=== PATIENT | female | born 1990 | race American Indian/Alaskan Native ===

== ENCOUNTER 2017-09-22 04:49 | Observation (INO) | payer BC ==
[2017-09-22] MEDS ORDERED: ACETADOTE IV ONE ×5 (05:44→14:00)
[2017-09-22] MEDS ORDERED: NACL 0.9% IV ONE ×4 (06:00→14:00)
[2017-09-22 06:07] LABS: Basophils % (Auto) 0.2 % (0.0-1.8); Eosinophils % (Auto) 0.6 % (0.0-4.3); Hematocrit 36.6 % (30.3-42.9); Hemoglobin 12.1 gm/dl (10.1-14.3); Lymphocytes # (Auto) 1.1 K/mm3 (1.2-5.4); Lymphocytes % (Auto) 14.8 % (13.4-35.0); Mean Corpuscular HGB Conc 33 % (30-34); Mean Corpuscular Volume 78 fl (79-97); Monocytes # (Auto) 0.4 K/mm3 (0.0-0.8); Monocytes % (Auto) 4.5 % (0.0-7.3); Platelet Count 349 K/mm3 (140-440)
[2017-09-22 06:09] LABS: Mean Corpuscular Hemoglobin 26 pg (28-32)
[2017-09-22 06:18] LABS: INR 0.9 (0.87-1.13)
[2017-09-22 06:59] LABS: Alanine Aminotransferase 8 units/L (7-56); Albumin 3.7 g/dL (3.9-5); BUN/Creatinine Ratio 11; Blood Urea Nitrogen 8 mg/dL (7-17); Calcium 8.8 mg/dL (8.4-10.2); Hemolysis Index 3
--- NOTE | 2017-09-22 07:16 | Emergency Department Report ---
ED General Adult HPI - General Chief complaint: Overdose Stated complaint: TYENOL OVER DOSE Time Seen by Provider: 09/22/17 07:01 Source: patient Mode of arrival: Ambulatory Limitations: No Limitations - History of Present Illness Initial comments: Patient states her menstrual cramps took 16 650 mg Tylenol course 24 hours she was given acetylcysteine on arrival 5 AM she is here for evaluation of taking too much Tylenol. She does deny SI or HI initial dose of Tylenol coronary the patient was yesterday at 5 AM she continued taking it over the course of the day. She ended up coming to the ED because she started to the medicine was making her nauseated. She has been having a little bit of nausea and vomiting. poison control was apparently notified on patient's arrival by the nurses prior to my arrival. Given her symptoms and the amount of continuous Tylenol ingestion they were unable to determine time of onset or toxic dose. At that point on poison center did recommend a full course of acetylcysteine. Patient did receive initial acetylcysteine prior to my arrival, she is here stating int. nausea, intial lft's unremarkable -: Gradual, hour(s) Associated Symptoms: loss of appetite, nausea/vomiting. denies: confusion, chest pain, cough, diaphoresis, fever/chills, headaches, shortness of breath, syncope, weakness - Related Data Allergies Allergy/AdvReac Type Severity Reaction Status Date / Time No Known Allergies Allergy Unverified 09/22/17 04:57 ED Review of Systems ROS: Stated complaint: TYENOL OVER DOSE Other details as noted in HPI Comment: All other systems reviewed and negative Constitutional: denies: diaphoresis, fever, malaise Eyes: denies: eye discharge, vision change ENT: denies: dental pain, hearing loss, epistaxis Respiratory: denies: shortness of breath, SOB with exertion, SOB at rest, stridor Cardiovascular: denies: chest pain, palpitations, dyspnea on exertion, orthopnea , edema, syncope, paroxysmal nocturnal dyspnea Genitourinary: denies: frequency, hematuria, discharge Musculoskeletal: denies: joint swelling, arthralgia Skin: denies: change in color, change in hair/nails, pruritus Neurological: denies: numbness, paresthesias, confusion, abnormal gait, vertigo Psychiatric: denies: depression, auditory hallucinations, visual hallucinations , homicidal thoughts, suicidal thoughts ED Past Medical Hx - Past Medical History Previous Medical History?: No - Surgical History Past Surgical History?: No - Social History Smoking Status: Current Some Day Smoker Substance Use Type: None ED Physical Exam - General Limitations: No Limitations General appearance: alert, anxious - Head Head exam: Present: atraumatic, normocephalic - Eye Eye exam: Present: PERRL, EOMI - ENT ENT exam: Present: normal exam, normal orophraynx - Neck Neck exam: Present: normal inspection. Absent: tenderness, meningismus - Respiratory Respiratory exam: Present: normal lung sounds bilaterally. Absent: respiratory distress, wheezes, rales, rhonchi, stridor, chest wall tenderness, accessory muscle use, decreased breath sounds, prolonged expiratory - Cardiovascular Cardiovascular Exam: Present: regular rate, normal rhythm - GI/Abdominal GI/Abdominal exam: Present: soft. Absent: distended, tenderness, guarding, rebound, mass - Extremities Exam Extremities exam: Present: normal inspection, normal capillary refill. Absent: pedal edema, joint swelling, calf tenderness - Neurological Exam Neurological exam: Present: alert, oriented X3, CN II-XII intact. Absent: motor sensory deficit - Skin Skin exam: Absent: cyanosis, diaphoretic, erythema, urticaria, vesicles, petechiae, pallor, abrasion, ecchymosis ED Course Vital Signs 09/22/17 09/22/17 09/22/17 04:51 05:56 06:00 Temperature 97.6 F Pulse Rate 68 59 L 58 L Respiratory 18 17 13 Rate Blood Pressure 109/65 118/71 Blood Pressure [Left] O2 Sat by Pulse 98 Oximetry 09/22/17 09/22/17 09/22/17 06:15 07:00 07:15 Temperature 98.1 F 98.6 F Pulse Rate 58 L 72 72 Respiratory 14 20 20 Rate Blood Pressure 125/77 Blood Pressure 120/67 125/77 [Left] O2 Sat by Pulse 98 100 100 Oximetry ED Medical Decision Making - Lab Data Result diagrams: 09/22/17 05:44 09/22/17 05:44 - Medical Decision Making Case was discussed with Dr. jb BHATIA of hospital service who will admit for further evaluation of Tylenol overdose. Patient was consult for mental health given the unknown nature of the ingestion although it does sound like it may have just been a innocent. She is not denying SH at this time. Overall mental health will also be consult. She'll need admission for [facility] Critical care attestation.: If time is entered above; I have spent that time in minutes in the direct care of this critically ill patient, excluding procedure time. ED Disposition Clinical Impression: Acetaminophen overdose Disposition: OP ADMIT IP TO THIS HOSP Is pt being admited?: Yes Condition: Stable Referrals: PRIMARY CARE, [Primary Care Provider] - 3-5 Days Time of Disposition: 10:18
[2017-09-22 07:17] LABS: Bilirubin,Direct < 0.2 mg/dL (0-0.2)
[2017-09-22] MEDS ORDERED: ZOFRAN IV ONE (07:19)
[2017-09-22 08:53] LABS: Bilirubin,Urine NEG (Negative); Blood,Urine SM (Negative); Color,Urine Yellow (Yellow); Mucus,Urine FEW /HPF; Urobilinogen,Urine < 2.0 mg/dL (<2.0)
[2017-09-22 09:17] LABS: HCG Qualitative,Urine Negative (Negative)
[2017-09-22 09:50] LABS: Amphetamine Screen,Urine PRESUMPTIVE NEGATIVE; Benzodiazepines Screen,Urine PRESUMPTIVE NEGATIVE; Cannabinoid Screen,Urine PRESUMPTIVE NEGATIVE; Cocaine Screen,Urine PRESUMPTIVE NEGATIVE; Methadone Screen,Urine PRESUMPTIVE NEGATIVE; Opiate Screen,Urine PRESUMPTIVE NEGATIVE
--- NOTE | 2017-09-22 12:11 | History and Physical Report ---
History of Present Illness Date of examination: 09/22/17 Date of admission: 09/22/17 10:07 Chief complaint: Tylenol overdose History of present illness: 27-year-old -[place] female presented to the emergency department after taking 16, 650 mgs of Tylenol. Patient had mild abdominal cramp, nausea and vomiting. Patient denied any yellowish discoloration of coma loss of consciousness or any other complaints. Patient took the Tylenol for menstrual cramp, she usally take 4 Tylenols. Patient states she has a side effect of Tylenols. Poison control was consulted and ordered an N-acetylcystine and advised to admit and observe her for 1 more day REVIEW OF SYSTEMS: GENERAL: no weight change, no fatigue, no fever HEAD: no head ache EYES: no blurry vision, no acute visual loss EARS: no hearing loss, no discharge, no earache NOSE: no stuffiness, no sneezing, no discharge MOUTH, THROAT AND NECK: no bleeding gums, no sore throat, no swollen neck CARDIAC: no palpitations, no dyspnea on exertion, no orthopnea, no PND, no edema , no chest pain RESPIRATORY: no shortness of breath, no wheeze, no cough, no sputum, no hemoptysis, no asthma GI: no decreased appetite, no nausea, no vomiting, no dysphagia, no diarrhea, no constipation, no abdominal pain URINARY: no change in frequency, no urgency, no polyuria, no hematuria, no incontinence MUSCULOSKELETAL: no muscle weakness, no pain, no joint stiffness NEUROLOGIC: no loss of sensation/numbness, no tingling, no tremors, no weakness/ paralysis HEMATOLOGIC: no anemia, no easy bruising SKIN: no rashes ENDOCRINE: no heat/cold intolerance, no polyuria, no polydipsia, no thyroid problems, no diabetes PSYCHIATRIC: no anxiety, no depression, no suicidal ideations Past History Past Medical History: No medical history Past Surgical History: No surgical history Social history: full code. denies: smoking, alcohol abuse, prescription drug abuse Family history: no significant family history Medications and Allergies Allergies Allergy/AdvReac Type Severity Reaction Status Date / Time No Known Allergies Allergy Unverified 09/22/17 04:57 Home Medications Medication Instructions Recorded Confirmed Last Taken Type Omeprazole Magnesium [Prilosec Otc] 20 mg PO DAILY 09/22/17 09/22/17 Unknown History Active Meds: Active Medications Acetylcysteine 5,000 mg/ (Sodium Chloride) 525 mls @ 131.25 mls/hr IV ONCE ONE Stop: 09/22/17 13:59 Last Admin: 09/22/17 10:00 Dose: 131.25 mls/hr Acetylcysteine 10,000 mg/ (Sodium Chloride) 1,050 mls @ 65.625 mls/hr IV ONCE ONE Stop: 09/23/17 03:29 Last Admin: 09/22/17 11:58 Dose: 65.625 mls/hr Exam - Physical Exam Narrative exam: Not in cardiopulmonary distress. The patient is obese. Vital signs as documented. Head exam is unremarkable. No scleral icterus . Neck is without jugular venous distension, thyromegaly, or carotid bruits. Lungs are clear to auscultation. Cardiac exam reveals regular rate and Rhythm. First and second heart sounds normal. No murmurs, rubs or gallops. Abdominal exam reveals normal bowel sounds, no masses, no organomegaly and no aortic enlargement. Extremities are nonedematous and both femoral and pedal pulses are normal. PHYSICS TUTOR: Alert and oriented 3. No focal weakness. - Constitutional Vitals: Temp Pulse Resp BP Pulse Ox 98.6 F 72 20 125/77 100 09/22/17 07:15 09/22/17 07:15 09/22/17 07:15 09/22/17 07:15 09/22/17 07:15 Results - Labs CBC & Chem 7: 09/22/17 05:44 09/22/17 05:44 Labs: Laboratory Last Values WBC 7.7 K/mm3 (4.5-11.0) 09/22/17 05:44 RBC 4.70 M/mm3 (3.65-5.03) 09/22/17 05:44 Hgb 12.1 gm/dl (10.1-14.3) 09/22/17 05:44 Hct 36.6 % (30.3-42.9) 09/22/17 05:44 MCV 78 fl (79-97) L 09/22/17 05:44 MCH 26 pg (28-32) L 09/22/17 05:44 MCHC 33 % (30-34) 09/22/17 05:44 RDW 15.0 % (13.2-15.2) 09/22/17 05:44 Plt Count 349 K/mm3 (140-440) 09/22/17 05:44 Lymph % (Auto) 14.8 % (13.4-35.0) 09/22/17 05:44 [place] % (Auto) 4.5 % (0.0-7.3) 09/22/17 05:44 Eos % (Auto) 0.6 % (0.0-4.3) 09/22/17 05:44 Baso % (Auto) 0.2 % (0.0-1.8) 09/22/17 05:44 Lymph # 1.1 K/mm3 (1.2-5.4) L 09/22/17 05:44 [place] # 0.4 K/mm3 (0.0-0.8) 09/22/17 05:44 Eos # 0.0 K/mm3 (0.0-0.4) 09/22/17 05:44 Baso # 0.0 K/mm3 (0.0-0.1) 09/22/17 05:44 Seg Neutrophils % 79.9 % (40.0-70.0) H 09/22/17 05:44 Seg Neutrophils # 6.2 K/mm3 (1.8-7.7) 09/22/17 05:44 PT 12.6 Sec. (12.2-14.9) 09/22/17 05:44 INR 0.90 (0.87-1.13) 09/22/17 05:44 Sodium 137 mmol/L (137-145) 09/22/17 05:44 Potassium 3.7 mmol/L (3.6-5.0) 09/22/17 05:44 Chloride 103.0 mmol/L (98-107) 09/22/17 05:44 Carbon Dioxide 27 mmol/L (22-30) 09/22/17 05:44 Anion Gap 11 mmol/L 09/22/17 05:44 BUN 8 mg/dL (7-17) 09/22/17 05:44 Creatinine 0.7 mg/dL (0.7-1.2) 09/22/17 05:44 Estimated GFR > 60 ml/min 09/22/17 05:44 BUN/Creatinine Ratio 11 % 09/22/17 05:44 Glucose 95 mg/dL (65-100) 09/22/17 05:44 Calcium 8.8 mg/dL (8.4-10.2) 09/22/17 05:44 Total Bilirubin 0.20 mg/dL (0.1-1.2) 09/22/17 05:44 Direct Bilirubin < 0.2 mg/dL (0-0.2) 09/22/17 05:44 Indirect Bilirubin 0.0 mg/dL 09/22/17 05:44 AST 11 units/L (5-40) 09/22/17 05:44 ALT 8 units/L (7-56) 09/22/17 05:44 Alkaline Phosphatase 92 units/L (35-129) 09/22/17 05:44 Total Protein 7.0 g/dL (6.3-8.2) 09/22/17 05:44 Albumin 3.7 g/dL (3.9-5) L 09/22/17 05:44 Albumin/Globulin Ratio 1.1 % 09/22/17 05:44 Urine Color Yellow (Yellow) 09/22/17 07:03 Urine Turbidity Clear (Clear) 09/22/17 07:03 Urine pH 6.0 (5.0-7.0) 09/22/17 07:03 Ur Specific [place] 1.042 (1.003-1.030) H 09/22/17 07:03 Urine Protein 100 mg/dl mg/dL (Negative) 09/22/17 07:03 Urine Glucose (UA) Neg mg/dL (Negative) 09/22/17 07:03 Urine Ketones 20 mg/dL (Negative) 09/22/17 07:03 Urine Blood Sm (Negative) 09/22/17 07:03 Urine Nitrite Neg (Negative) 09/22/17 07:03 Urine Bilirubin Neg (Negative) 09/22/17 07:03 Urine Urobilinogen < 2.0 mg/dL (<2.0) 09/22/17 07:03 Ur Leukocyte Esterase Neg (Negative) 09/22/17 07:03 Urine WBC (Auto) 6.0 /HPF (0.0-6.0) 09/22/17 07:03 Urine RBC (Auto) 24.0 /HPF (0.0-6.0) 09/22/17 07:03 U Epithel Cells (Auto) 2.0 /HPF (0-13.0) 09/22/17 07:03 Urine Mucus Few /HPF 09/22/17 07:03 Urine HCG, Qual Negative (Negative) 09/22/17 07:03 Salicylates < 0.3 mg/dL (2.8-20.0) L 09/22/17 05:44 Urine Opiates Screen Presumptive negative 09/22/17 07:03 Urine Methadone Screen Presumptive negative 09/22/17 07:03 Acetaminophen < 5.0 ug/mL (10.0-30.0) L 09/22/17 07:11 Ur Barbiturates Screen Presumptive negative 09/22/17 07:03 Ur Phencyclidine Scrn Presumptive negative 09/22/17 07:03 Ur Amphetamines Screen Presumptive negative 09/22/17 07:03 U Benzodiazepines Scrn Presumptive negative 09/22/17 07:03 Urine Cocaine Screen Presumptive negative 09/22/17 07:03 U Marijuana (THC) Screen Presumptive negative 09/22/17 07:03 Drugs of Abuse Note Disclamer 09/22/17 07:03 Plasma/Serum Alcohol < 0.01 % (0-0.07) 09/22/17 05:44 Assessment and Plan Assessment and plan: 27-year-old -[place] female presented to the emergency department after she took 16 Tylenols Patient has mild abdominal pain, nausea, vomiting Currently ordered the symptoms resolved Labs including tylenol level are Unremarkable Poison control was consulted and recommended to give her N-acetylcysteine, and observe for 1 more day. Obesity: Patient is counseled about weight loss, diet, exercise. DVT prophylaxis: Lovenox. Disposition: Admit to medical floor. Advance Directives: Yes VTE prophylaxis?: Chemical Plan of care discussed with patient/family: Yes
[2017-09-22] MEDS ORDERED: ZOFRAN IV PRN (12:20)
[2017-09-22] MEDS ORDERED: LOVENOX SUB-Q SCH (22:00)
[2017-09-23] MEDS ORDERED: PROTONIX PO SCH (00:56)
[2017-09-23 06:01] LABS: Alanine Aminotransferase 9 units/L (7-56); Albumin 3.1 g/dL (3.9-5); BUN/Creatinine Ratio 12; Blood Urea Nitrogen 7 mg/dL (7-17); Calcium 8.1 mg/dL (8.4-10.2); Hemolysis Index 26
[2017-09-23 06:36] LABS: INR 1.01 (0.87-1.13)
[2017-09-23 08:28] VITALS: BP 119/67
--- NOTE | 2017-09-23 08:30 | Discharge Summary ---
Providers - Providers Date of Admission: 09/22/17 10:07 Attending physician: PETER DAVALOS MD 09/22/17 07:16 Consult to Mental Health [[facility]] Stat Reason For Exam: tylenol od Place consult to:: Notified:: yes Primary care physician: MANAGER PROCESS IMPROVEMENT Hospitalization Reason for admission: Acetaminophen overdose Condition: Stable Hospital course: 27-year-old -[place] female presented to the emergency department after taking 16, 650 mgs of Tylenol. Patient had mild abdominal cramp, nausea and vomiting. Patient denied any yellowish discoloration of coma loss of consciousness or any other complaints. Patient took the Tylenol for menstrual cramp, she usally take 4 Tylenols. Patient states she has a side effect of Tylenols. Poison control was consulted and ordered an N-acetylcystine and advised to admit and observe her for 1 more day. patient was admitted to the floor, patient finished N-acetylcysteine. Patient's liver function test and INR was within normal limits, patient didn't have any nausea, vomiting. Patient was hemodynamically stable. Patient was morbidly obese and counselled about weight loss, exercise and diet. Disposition: - TO HOME OR SELFCARE Time spent for discharge: 31 minutes - Discharge Diagnoses (1) Morbid obesity with BMI of 40.0-44.9, adult Status: Chronic (2) Acetaminophen overdose Status: Acute Core Measure Documentation - Palliative Care Palliative Care/ Comfort Measures: Not Applicable - Core Measures Any of the following diagnoses?: none Exam - Physical Exam Narrative exam: Not in cardiopulmonary distress. The patient is obese. Vital signs as documented. Head exam is unremarkable. No scleral icterus . Neck is without jugular venous distension, thyromegaly, or carotid bruits. Lungs are clear to auscultation. Cardiac exam reveals regular rate and Rhythm. First and second heart sounds normal. No murmurs, rubs or gallops. Abdominal exam reveals normal bowel sounds, no masses, no organomegaly and no aortic enlargement. Extremities are nonedematous and both femoral and pedal pulses are normal. 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 No focal weakness. - Constitutional Vitals: Temp Pulse Resp BP Pulse Ox 98.6 F 80 18 116/57 97 09/22/17 22:52 09/22/17 22:52 09/23/17 00:00 09/22/17 22:52 09/22/17 22:52 Plan Activity: no restrictions Weight Bearing Status: Full Weight Bearing Diet: low fat Follow up with: PRIMARY CAREMD [Primary Care Provider] - 7 Days Forms: Release Restrictions
== END 2017-09-23 12:00 | disposition home or self-care (01) ==
LOC: ED 04:49 → INTOOBSV 10:07 → 3A 10:07
PROVIDERS: ADMIT Internal Medicine; ATTEND Internal Medicine
DX: T39.1X1A Poisoning by 4-Aminophenol derivatives, accidental (unintentional), initial encounter (principal); E66.9 Obesity, unspecified; Z68.41 Body mass index [BMI] 40.0-44.9, adult; Y92.89 Other specified places as the place of occurrence of the external cause
CPT/HCPCS: 36415; 80048; 80053; 80074; 80307; 81001; 81025; 85025; 85610; 96365; 96366; 96372; 96375; 99285; G0378; G0480; J0132; J1650; J2405; J7030; J7040; J7050; 80320

== ENCOUNTER 2018-01-14 16:02 | Emergency (ER) | payer BC ==
[2018-01-14] MEDS ORDERED: TYLENOL PO ONE (16:58)
[2018-01-14] MEDS ORDERED: TYLENOL ONE (17:02)
[2018-01-14] MEDS ORDERED: ZOFRAN IV ONE (21:38)
[2018-01-14] MEDS ORDERED: NACL 0.9% 1000 ML 2,000 ML IV ONE (21:38)
--- NOTE | 2018-01-14 21:42 | Emergency Department Report ---
<JAMES BUSH - Last Filed: 01/14/18 23:12> ED Fever HPI - General Chief Complaint: Fever Stated Complaint: FEVER OF 102 3 DAYS/PAIN Time Seen by Provider: 01/14/18 21:37 - History of Present Illness Initial Comments: 27-year-old -[place] female presents to the emergency room for fever 3 days headache neck pain body pain and decreased appetite for the last 3 days. The patient does admit to nausea and vomited 1 this morning. She also admits to ear pain starting. She denies any sore throat sneezing coughing or chest pain. She does admit to a little short of breath. Patient has no past medical history currently takes no medications on a daily basis and has no known drug allergies. Patient reports she's been taking Tylenol which is helped with the fever but it returns. She has had no recent travels. Timing/Duration: constant Fever Severity/Quality: greater than 102 F Fever Therapy QUARRYMAN: Tylenol Associated Symptoms: headache, muscle aches, nausea/vomiting, stiff neck. denies: chest pain, cough ED Review of Systems ROS: Stated complaint: FEVER OF 102 3 DAYS/PAIN Other details as noted in HPI Constitutional: fever, weakness ENT: ear pain Respiratory: shortness of breath. denies: cough, wheezing Cardiovascular: denies: chest pain, palpitations Gastrointestinal: nausea, vomiting (x1). denies: abdominal pain, diarrhea Genitourinary: denies: urgency, dysuria, discharge Musculoskeletal: denies: back pain, joint swelling, arthralgia Neurological: headache, weakness Psychiatric: denies: anxiety, depression Hematological/Lymphatic: denies: easy bleeding, easy bruising ED Past Medical Hx - Past Medical History Previous Medical History?: No Hx Heart Attack/AMI: No - Surgical History Past Surgical History?: No - Social History Smoking Status: Never Smoker Substance Use Type: Alcohol - Medications Home Medications: Home Medications Medication Instructions Recorded Confirmed Last Taken Type Omeprazole Magnesium [Prilosec Otc] 20 mg PO DAILY 09/22/17 09/22/17 Unknown History ED Physical Exam - General Limitations: No Limitations General appearance: alert, in no apparent distress - Head Head exam: Present: atraumatic, normocephalic - Eye Eye exam: Present: EOMI - ENT ENT exam: Present: mucous membranes moist - Neck Neck exam: Present: normal inspection - Respiratory Respiratory exam: Present: normal lung sounds bilaterally. Absent: respiratory distress - Cardiovascular Cardiovascular Exam: Present: tachycardia - GI/Abdominal GI/Abdominal exam: Present: soft, normal bowel sounds. Absent: distended, tenderness - Extremities Exam Extremities exam: Present: normal inspection, full ROM - Back Exam Back exam: Present: normal inspection, full ROM - Neurological Exam Neurological exam: Present: alert, oriented X3, normal gait - Expanded Neurological Exam Expanded Patient oriented to: Present: person, place, time Cranial nerves: EOM's Intact: Normal, Gag Reflex: Normal, Tongue Deviation: Normal, Nystagmus: Normal, Facial Palsy with Forehead Movement: Normal, Facial Palsy without Forehead Movement: Normal Cerebellar function: Finger to Nose: Normal, Heel to Earl: Normal, Romberg: Normal Sensory exam: Upper Extremity Light Touch: Normal, Upper Extremity Pin Prick: Normal, Upper Extremity Temperature: Normal, UE 2 Point Discrimination: Normal, Lower Extremity Light Touch: Normal, Lower Extremity Pin Prick: Normal Motor strength exam: RUE: 5, LUE: 5, RLE: 5, LLE: 5 Best Eye Response (Kirstin): (4) open spontaneously Best Motor Response (Kirstin): (6) obeys commands Best Verbal Response (Kirstin): (5) oriented Kirstin Total: 15 - Psychiatric Psychiatric exam: Present: normal affect, normal mood - Skin Skin exam: Present: warm, dry, intact, normal color. Absent: rash ED Course Vital Signs 01/14/18 01/14/18 01/14/18 16:53 17:01 22:00 Temperature 102.7 F H 100.3 F H Pulse Rate 97 H 89 Respiratory 20 16 20 Rate Blood Pressure 132/62 Blood Pressure 115/78 [Right] O2 Sat by Pulse 96 100 Oximetry 01/15/18 01/15/18 01/15/18 01:05 01:30 01:54 Temperature 100.7 F H Pulse Rate 88 Respiratory 20 20 20 Rate Blood Pressure Blood Pressure 143/78 [Right] O2 Sat by Pulse 98 Oximetry 01/15/18 01/15/18 02:06 03:33 Temperature 98.8 F Pulse Rate 82 Respiratory 20 20 Rate Blood Pressure Blood Pressure 138/80 [Right] O2 Sat by Pulse 99 Oximetry ED Medical Decision Making - Lab Data Result diagrams: 01/14/18 21:44 01/14/18 21:44 - Medical Decision Making Patient has been evaluated by this provider in fast track. Patient's given Tylenol for fever and pain management in triage. This provider ordered CBC CMP and urinalysis IV fluids 2 L Zofran 4 mg IV. Patient lactic acid came back at 2.10 Discussed with he came over to evaluate patient as well he feels patient needs to be transferred over to the main ER. This provided contacted the charge nurse informed that we need a bed.. Critical care attestation.: If time is entered above; I have spent that time in minutes in the direct care of this critically ill patient, excluding procedure time. ED Disposition Condition: Stable Instructions: Acute Headache (ED), Fever in Adults (ED), Otitis Media (ED) Referrals: PRIMARY CARE, [Primary Care Provider] - 3-5 Days <BAM RAE - Last Filed: 01/15/18 03:41> ED Course - Reevaluation(s) Reevaluation #1: 01/15/18 01:52 I reexamined the patient has the patient was admitted to our main ED for further evaluation. Patient stated that she is feeling better. Admission had a red tympanic membrane on the right side with obvious otitis media. Neck exam was no clinical evidence of meningism. Patient does not look toxic. Heart and lung exam are normal. Abdomen is soft and nontender. Reevaluation #2: 01/15/18 03:37 Patient stated that she is feeling much better. Patient her food in no acute distress. no nausea or vomiting. Fevers subside. ED Medical Decision Making - Lab Data Result diagrams: 01/14/18 21:44 01/14/18 21:44 - Radiology Data Referring Physician: BAM RAE Patient Name: CHAPARRO ELLSWORTH Date of : 1990 Sex: Female Report Date: 2018-01-15 Report Status: Finalized Findings [facility] [address] [place] [address] Cat Scan Report Signed Patient: CHAPARRO ELLSWORTH MR#: [id number] : 1990 Acct:[id number] Age/Sex: 27 / F ADM Date: 01/14/18 Loc: ED Attending Dr: Ordering Physician: BAM RAE Date of Service: 01/15/18 Procedure(s): CT head/brain wo con Accession Number(s): [id number] cc: BAM RAE FINAL REPORT EXAM: CT HEAD/BRAIN WO CON HISTORY: headache fever COMPARISON: None available. TECHNIQUE: Axial images obtained skull base through vertex. FINDINGS: No acute intracranial hemorrhage, midline shift or pathologic extra axial fluid collection. Ventricles and cisterns are normal in size and configuration for the patient's age. Oden-white differentiation preserved. Calvarium grossly intact. Visualized ocular globes are grossly unremarkable. Visualized para-nasal sinuses and mastoid air cells are clear. IMPRESSION: No grossly acute intracranial abnormality. Transcribed By: LMA Dictated By: JOSE LUIS MORALES MD Electronically Authenticated By: JOSE LUIS MORALES MD Signed Date/Time: 01/15/18240 DD/ 0 TD/TT: 01/15/18240 - Medical Decision Making Patient improved significantly with IV fluids, pain medication and IV antibiotic. She stated that she is feeling much better. Patient is nontoxic. There is no clinical or laboratory evidence of meningitis. I advised patient to increase her by mouth intake, alternate Tylenol and Motrin for fever and follow-up with her primary care physician in the next 2-3 days. I also advised her to return to the ER if her symptoms are not improving. I will treat patient with Augmentin twice a day for 10 days for how right otitis media.
[2018-01-14 22:01] LABS: Basophils % (Auto) 0.3 % (0.0-1.8); Eosinophils % (Auto) 0.1 % (0.0-4.3); Hematocrit 38.4 % (30.3-42.9); Hemoglobin 12.4 gm/dl (10.1-14.3); Lymphocytes % (Auto) 19.2 % (13.4-35.0); Mean Corpuscular HGB Conc 32 % (30-34); Mean Corpuscular Volume 78 fl (79-97); Monocytes # (Auto) 1.1 K/mm3 (0.0-0.8); Monocytes % (Auto) 10.7 % (0.0-7.3); Platelet Count 299 K/mm3 (140-440); Red Blood Count 4.93 M/mm3 (3.65-5.03); Red Cell Distribution Width 15.9 % (13.2-15.2)
[2018-01-14 22:07] LABS: Bacteria,Urine 1+ /HPF (Negative); Bilirubin,Urine NEG (Negative); Blood,Urine SM (Negative); Color,Urine Amber (Yellow); Mucus,Urine 3+ /HPF
[2018-01-14 22:14] LABS: Mean Corpuscular Hemoglobin 25 pg (28-32)
[2018-01-14 22:14] LABS: Protein,Urine >500 mg/dL (Negative)
[2018-01-14 22:24] LABS: Alanine Aminotransferase 10 units/L (7-56); BUN/Creatinine Ratio 8; Blood Urea Nitrogen 7 mg/dL (7-17); Calcium 8.9 mg/dL (8.4-10.2); Hemolysis Index 0
[2018-01-14] MEDS ORDERED: ROCEPHIN/NS 1 GM/50 ML 1 GM/50 ML BAG IV ONE (23:10)
[2018-01-14] MEDS ORDERED: NACL 0.9% 1000 ML 1,000 ML IV ONE (23:44)
--- NOTE | 2018-01-14 23:52 | XRay Report ---
FINAL REPORT EXAM: XR CHEST ROUTINE 2V HISTORY: fever TECHNIQUE: PA and lateral views of the chest Comparison: None FINDINGS: There is no evidence of infiltrate, pneumothorax or pleural fluid collection. The cardiomediastinal silhouette is normal in appearance. The bony structures are unremarkable. IMPRESSION: 1. No evidence of an acute pulmonary process.
[2018-01-15] MEDS ORDERED: ZOFRAN IV ONE (00:27)
[2018-01-15] MEDS ORDERED: MORPHINE IV ONE (00:27)
[2018-01-15] MEDS ORDERED: ZOFRAN ONE (00:32)
[2018-01-15] MEDS ORDERED: MORPHINE ONE (00:32)
[2018-01-15] MEDS ORDERED: TORADOL IV ONE (01:54)
--- NOTE | 2018-01-15 02:42 | Cat Scan Report ---
FINAL REPORT EXAM: CT HEAD/BRAIN WO CON HISTORY: headache fever COMPARISON: None available. TECHNIQUE: Axial images obtained skull base through vertex. FINDINGS: No acute intracranial hemorrhage, midline shift or pathologic extra axial fluid collection. Ventricles and cisterns are normal in size and configuration for the patient's age. Oden-white differentiation preserved. Calvarium grossly intact. Visualized ocular globes are grossly unremarkable. Visualized para-nasal sinuses and mastoid air cells are clear. IMPRESSION: No grossly acute intracranial abnormality.
[2018-01-15 05:09] VITALS: BP 132/79
== END 2018-01-15 05:11 | disposition home or self-care (01) ==
LOC: ED 16:02
DX: H66.91 Otitis media, unspecified, right ear (principal); R50.9 Fever, unspecified; R51 Headache
CPT/HCPCS: 36415; 70450; 71046; 80053; 81001; 82140; 84703; 85025; 87116; 87400; 87430; 96361; 96365; 96375; 96376; 99285; J0696; J1885; J2270; J2405; J7030

== ENCOUNTER 2021-12-17 11:08 | Outpatient (CLI) | payer OTHER ==
--- NOTE | 2021-12-17 14:51 | Cat Scan Report ---
CT SINUSES HISTORY: Chronic sinusitis COMPARISON: None. TECHNIQUE: Axial images of the sinuses were obtained. Coronal and sagittal reformats were generated. All CT scans at this location are performed using CT dose reduction for ALARA by means of automated exposure control. CONTRAST: None. FINDINGS: Nasal septum: No significant deviation. Paranasal sinuses: Clear. Ostiomeatal complex: No significant abnormality. Frontal Recesses: Clear. Sphenoethmoidal Recesses: Clear. Anatomical Variants: No significant anatomic variants. Visualized mastoid air cells: No significant abnormality. Visualized intracranial space: No significant abnormality. Visualized orbits: No significant abnormality. Additional findings: None. IMPRESSION: 1. No significant sinusitis or obstruction of sinus drainage pathways. Signer Name: Ramón Torres MD Signed: 12/17/2021 2:46 PM Workstation Name: [id number]
== END 2021-12-17 11:09 | disposition home or self-care (01) ==
LOC: CT 11:08
PROVIDERS: ATTEND Internal Medicine Adolescent Medicine
DX: J32.0 Chronic maxillary sinusitis (principal)
CPT/HCPCS: 70486